=== PATIENT | male | born 1985 | race Caucasian/White ===

== ENCOUNTER 2019-12-28 08:24 | Emergency (ER) | payer OTHER ==
--- NOTE | 2019-12-28 08:27 | EDM.PDOC ---
ED HPI GENERAL MEDICAL PROBLEM - General Chief Complaint: Back Pain or Injury Stated Complaint: [facility] Time Seen by Provider: 12/28/19 08:45 Source of Information: Reports: Patient, EMS History Limitations: Reports: No Limitations - History of Present Illness Onset Date: 12/25/19 Duration: Day(s): (4), Waxing/Waning Location: Reports: Back. Denies: Radiates to Front/Back Body Image: 1 - , More on R side than left Quality: Reports: Same as Previous Episode, Stabbing Severity: Severe Improves with: Reports: Medication, Movement, Rest, Other (Being still) Worsens with: Reports: Other (Having in car (having to drive several hours a day to visit his mother who is hospitalized)), Movement Associated Symptoms: Reports: No Other Symptoms. 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 Ambulance personnel administered Toradol and Fentanyl en route) Lower Back Pain Score (Numeric/FACES): 3 - Related Data Allergies Allergy/AdvReac Type Severity Reaction Status Date / Time No Known Allergies Allergy Verified 12/28/19 08:30 Home Meds: Home Meds Dextroamphetamine/Amphetamine [Adderall 20 mg Tablet] 20 mg PO DAILY 12/28/19 [ History] LORazepam [Ativan] 1 mg PO BEDTIME PRN 12/28/19 [History] Mirtazapine 30 mg PO DAILY 12/28/19 [History] Past Medical History Musculoskeletal History: Reports: Back Pain, Chronic - History Comment History Comment: Receives healthcare through the [place] Social & Family History - Living Situation & Occupation Living situation: Reports: Single, with Family (Lives with his parents. Mother is currently hospitalized out of town) Occupation: Unemployed Social History Comment: Originally injured his back while in the [employer]. Served 8 years in the [employer] ED ROS GENERAL - Review of Systems Review Of Systems: See Below Constitutional: Denies: Fever, Weakness HEENT: Reports: No Symptoms Respiratory: Reports: No Symptoms Cardiovascular: Reports: No Symptoms GI/Abdominal: Denies: Abdominal Pain : Denies: Dysuria, Hematuria Musculoskeletal: Reports: Back Pain, Muscle Stiffness Skin: Reports: No Symptoms. Denies: Rash Neurological: Denies: Confusion, Headache, Numbness, Paresthesia, Pre-Existing Deficit, Weakness Psychiatric: Reports: No Symptoms ED EXAM,LOWER BACK PAIN/INJURY - Physical Exam Exam: See Below Exam Limited By: Other (Initially unable to roll to one side or the other, or sit up for examination of the back. I administered pain medication and muscle relaxants IV in order to enable me to examine his back.) General Appearance: Severe Distress Eye Exam: Bilateral Eye: Normal Inspection, PERRL Ears: Normal External Exam Nose: Normal Inspection Head: Atraumatic, Normocephalic Neck: Supple, Non-Tender, Full Range of Motion Respiratory/Chest: No Respiratory Distress Cardiovascular: Normal Peripheral Pulses, Other (Bilateral dorsalis pedis pulses easily palpable) GI/Abdominal: Soft, Non-Tender, No Organomegaly, No Mass Back Exam: Normal Inspection, Decreased Range of Motion, Muscle Spasm. No: CVA Tenderness (R), CVA Tenderness (L), Paraspinal Tenderness, Vertebral Tenderness (No midline tenderness but definite tenderness on palpation of the right sacroiliac area) Extremities: Normal Inspection, No Pedal Edema Neurological: Alert, Normal Mood/Affect, Normal Dorsiflexion, Normal Reflexes, Oriented x 3, Straight Leg Raise (L) (Really decreased ability to straight leg raise on the right compared to the left patient is fearful that straight leg raising on the right will aggravate back spasms), Straight Leg Raise (R), Other (Patient is able to dorsiflex both feet against resistance.). No: Tremor, Saddle Anesthesia DTR - Lower Extremities: 2+: Knee (R), Knee (L) Psychiatric: Normal Affect, Normal Mood Skin Exam: Warm, Dry, No Rash Lymphatic: No Adenopathy Course - Vital Signs Text/Narrative:: Started IV diazepam and Dilaudid here in the emergency department the patient stated that he did have a ride home. Patient was monitored with pulse oximetry after administration of opioid and benzodiazepine. Had good result with administered medication and definitely feels better. Last Recorded V/S: Last Vital Signs Temp 35 C L 12/28/19 08:32 Pulse 88 12/28/19 08:32 Resp 16 12/28/19 08:32 BP 170/115 H 12/28/19 08:32 Pulse Ox 95 12/28/19 08:32 - Orders/Labs/Meds Orders: Active Orders 24 hr Category Date Time Status Overnight Pulse Oximetry [RC] Click to Edit Care 12/28/19 08:58 Active Sodium Chloride 0.9% [Normal Saline] 1,000 ml Med 12/28/19 09:00 Active IV ASDIRECTED Pulse Oximetry Continuous Monitoring [OM.PC] Routine Oth 12/28/19 08:57 Ordered Medication Orders Sodium Chloride (Normal Saline) 1,000 mls @ 125 mls/hr IV ASDIRECTED ERVIN Last Admin: 12/28/19 09:10 Dose: 125 mls/hr Infusion: 12/28/19 09:10 Dose: 125 mls/hr Admin: 12/28/19 09:07 Dose: 125 mls/hr Meds: Medications Generic Name Dose Route Start Last Admin Trade Name Freq PRN Reason Stop Dose Admin Sodium Chloride 1,000 mls @ 125 mls/hr 12/28/19 09:00 12/28/19 09:10 Normal Saline IV 125 mls/hr ASDIRECTED ERVIN Administration Discontinued Medications Generic Name Dose Route Start Last Admin Trade Name Freq PRN Reason Stop Dose Admin Diazepam 5 mg 12/28/19 08:54 12/28/19 09:01 Valium IVPUSH 12/28/19 08:55 5 mg ONETIME ONE Administration Hydromorphone HCl 0.5 mg 12/28/19 08:54 12/28/19 09:01 Dilaudid IVPUSH 12/28/19 08:55 0.5 mg ONETIME ONE Administration Departure - Departure Time of Disposition: 09:59 Disposition: Home, Self-Care 01 Condition: Good Clinical Impression: Chronic low back pain - Discharge Information Instructions: Back Exercises, Chronic Back Pain Referrals: PCP,None [Primary Care Provider] - Forms: ED Department Discharge Additional Instructions: Use acetaminophen and ibuprofen at home as needed for pain. You can take up to 1000 mg of acetaminophen 4 times a day, but no more than that. You can take up to 600 mg of ibuprofen 3 times a day, but no more than that. Use only 1 form of ibuprofen (or NSAID) such as Motrin, Advil, Aleve. Utilize the prescribed diazepam 5 mg tablet 1 orally 3 times a day for muscle spasm. Do no forward bending or lifting more than 10 pounds for the next week. After several days when your back is starting to feel better, start stretching routine Sepsis Event Note - Focused Exam Vital Signs: Vital Signs Temp Pulse Resp BP Pulse Ox 12/28/19 08:32 35 C L 88 16 170/115 H 95 Date Exam was Performed: 12/28/19 Time Exam was Performed: 09:56 - My Orders Last 24 Hours: My Active Orders 12/28/19 08:57 Pulse Oximetry Continuous Monitoring [OM.PC] Routine 12/28/19 08:58 Overnight Pulse Oximetry [RC] Click to Edit 12/28/19 09:00 Sodium Chloride 0.9% [Normal Saline] 1,000 ml IV ASDIRECTED - Assessment/Plan Last 24 Hours: My Active Orders 12/28/19 08:57 Pulse Oximetry Continuous Monitoring [OM.PC] Routine 12/28/19 08:58 Overnight Pulse Oximetry [RC] Click to Edit 12/28/19 09:00 Sodium Chloride 0.9% [Normal Saline] 1,000 ml IV ASDIRECTED
[2019-12-28] MEDS ORDERED: HYDROmorphone 0.5 MG/0.5 ML Syringe IVPUSH ONE (08:54)
[2019-12-28] MEDS: Sodium Chloride 0.9% 1,000 ML IV SCH ×2 (09:07→09:10)
== END 2019-12-28 11:15 | disposition home or self-care (01) ==
LOC: JP.ED 08:24
DX: G89.29 Other chronic pain (principal); M54.5 Low back pain
CPT/HCPCS: 96361; 96374; 96375; 99284; J1170; J3360; J7030; 99283

== ENCOUNTER 2022-03-16 02:58 | Emergency (ER) | payer OTHER ==
[2022-03-16] MEDS ORDERED: Ondansetron 4 MG/2 ML SDV ONE (03:14)
[2022-03-16] MEDS ORDERED: Ondansetron 4 MG/2 ML SDV IVPUSH PRN (03:15)
[2022-03-16] MEDS ORDERED: Sodium Chloride 0.9% 1,000 ML IV SCH (03:30)
[2022-03-16] MEDS ORDERED: LORazepam 2 MG/ML SDV IVPUSH ONE (03:31)
[2022-03-16] MEDS ORDERED: Buprenorphine/Naloxone 2-0.5 MG Tab.SL SL ONE (03:32)
[2022-03-16] MEDS ORDERED: Potassium Chloride 20 MEQ Tab.ER PO ONE (04:10)
[2022-03-16] MEDS ORDERED: Famotidine 20 MG Tab PO ONE (04:14)
== END 2022-03-16 04:43 | disposition home or self-care (01) ==
LOC: JP.ED 02:58
DX: F19.139 Other psychoactive substance abuse with withdrawal, unspecified (principal); F17.210 Nicotine dependence, cigarettes, uncomplicated
CPT/HCPCS: 36415; 80053; 80305; 81001; 85025; 96361; 96374; 96375; 99282; 99284; A9270; J2060; J2405; J7030